=== PATIENT | female | born 1955 | race Caucasian/White ===

== ENCOUNTER → 2016-12-20 | Outpatient (REF) | payer OTHER | LOC: M LAB REF 17:13 | PROVIDERS: ATTEND Advanced Practice Midwife | DX: Z12.4 Encounter for screening for malignant neoplasm of cervix (principal) ==

== ENCOUNTER 2017-04-24 20:53 | Emergency (ER) | payer BC, OTHER ==
[~2017-04-24] VITALS: Ht 165.1 cm; Wt 84.1 kg
[2017-04-24] MEDS ORDERED: NS 1,000 ML IV ONE (22:00)
[2017-04-24] MEDS ORDERED: ONDANSETRON 4MG/2ML VIAL (J2405) IV ONE (22:00)
[2017-04-24] MEDS ORDERED: KETOROLAC 30 MG/ML VIAL (J1885) IV ONE (22:00)
[2017-04-24 23:08] LABS: BASO % 0.7 % (0.0-1.0); EOS # 0.1 K/mm3 (0.0-0.50); EOS % 1.6 % (0.0-3.0); LARGE UNSTAINED CELL # 0.2 K/mm3 (0.0-0.4); LARGE UNSTAINED CELL % 2.2 % (0.0-4.0); LYMPH # 0.8 K/mm3 (1.5-4.5); LYMPH % 9.1 % (24.0-44.0); MEAN CORPUSCULAR HEMOGLOBIN 30.9 pg (27.0-33.0); MEAN CORPUSCULAR HGB CONC 32.9 g/dl (32.0-36.5); MEAN CORPUSCULAR VOLUME 93.8 fl (80.0-96.0); MONO # 0.4 K/mm3 (0.0-0.8); MONO % 5.3 % (0.0-5.0); NEUTROPHILS # 5.8 K/mm3 (1.8-7.7); NEUTROPHILS % 81.2 % (36.0-66.0); PLATELET COUNT, AUTOMATED 250 k/mm3 (150-450); RED CELL DISTRIBUTION WIDTH 13.7 % (11.5-14.5); WHITE BLOOD COUNT 7.2 K/mm3 (4.0-10.0)
[2017-04-24 23:32] LABS: ALBUMIN 3.5 GM/DL (3.2-5.2); ALKALINE PHOSPHATASE 175 U/L (45-117); ALT/SGPT 25 U/L (12-78); AMYLASE 23 U/L (25-115); ANION GAP 17 MEQ/L (8-16); AST/SGOT 5 U/L (15-37); BILIRUBIN,DIRECT < 0.1 MG/DL (0.0-0.2); BILIRUBIN,TOTAL 0.4 MG/DL (0.2-1.0); BLOOD UREA NITROGEN 10 MG/DL (7-18); CALCIUM LEVEL 9.2 MG/DL (8.5-10.1); CARBON DIOXIDE LEVEL 11 MEQ/L (21-32); CHLORIDE LEVEL 107 MEQ/L (98-107); CREATININE FOR GFR 1.02 MG/DL (0.55-1.02); GLUCOSE, FASTING 318 MG/DL (70-105); POTASSIUM SERUM 3.5 MEQ/L (3.5-5.1); SODIUM LEVEL 135 MEQ/L (136-145); TOTAL PROTEIN 8.5 GM/DL (6.4-8.2)
[2017-04-24] MEDS ORDERED: LEVA1TAB PO (23:57)
[2017-04-25] MEDS ORDERED: LevoFLOXacin 250 MG TABLET PO ONE
[2017-04-25 00:30] VITALS: BP 121/65
--- NOTE | 2017-04-25 19:28 | ECGEPIP ---
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 RBBB NO PRIORS Electronically Signed On 04-25-2017 19:28:14 EDT by Carlito Noel
== END 2017-04-25 00:37 | disposition home or self-care (01) ==
LOC: M ED 20:53
DX: N30.90 Cystitis, unspecified without hematuria (principal); E11.65 Type 2 diabetes mellitus with hyperglycemia; R50.9 Fever, unspecified; R11.0 Nausea; R94.31 Abnormal electrocardiogram [ECG] [EKG]

== ENCOUNTER 2017-04-27 15:55 | Inpatient (IN) | payer BC, OTHER ==
[~2017-04-27] VITALS: Ht 165.1 cm; Wt 78.0 kg
[~2017-04-27 15:55] MED LIST: LEVA1TAB PO
[2017-04-27] MEDS ORDERED: JARD1TAB PO (16:07)
[2017-04-27] MEDS ORDERED: METF500T13 PO (16:07)
[2017-04-27] MEDS ORDERED: NS 1,000 ML IV ONE (16:30)
[2017-04-27] MEDS ORDERED: ONDANSETRON 4MG/2ML VIAL (J2405) IV ONE (16:30)
[2017-04-27 17:06] LABS: VENOUS PARTIAL PRESSURE CO2 21.9 mmHg (38.0-50.0); VENOUS STANDARD HCO3 9.7 MEQ/L; VENOUS TOTAL CO2 7.4 MEQ/L (24.0-28.0)
[2017-04-27 17:17] LABS: BASO % 0.3 % (0.0-1.0); EOS # 0.1 K/mm3 (0.0-0.50); EOS % 1.6 % (0.0-3.0); LARGE UNSTAINED CELL # 0.2 K/mm3 (0.0-0.4); LARGE UNSTAINED CELL % 2.5 % (0.0-4.0); LYMPH # 0.5 K/mm3 (1.5-4.5); LYMPH % 6.2 % (24.0-44.0); MEAN CORPUSCULAR HEMOGLOBIN 31.6 pg (27.0-33.0); MEAN CORPUSCULAR HGB CONC 34.3 g/dl (32.0-36.5); MONO # 0.6 K/mm3 (0.0-0.8); MONO % 8.5 % (0.0-5.0); NEUTROPHILS % 80.9 % (36.0-66.0); PLATELET COUNT, AUTOMATED 216 k/mm3 (150-450); RED CELL DISTRIBUTION WIDTH 13.7 % (11.5-14.5); WHITE BLOOD COUNT 7.5 K/mm3 (4.0-10.0)
[2017-04-27 17:35] LABS: ALBUMIN 3.4 GM/DL (3.2-5.2); ALBUMIN/GLOBULIN RATIO 0.77 (1.00-1.93); ALKALINE PHOSPHATASE 170 U/L (45-117); ALT/SGPT 22 U/L (12-78); ANION GAP 21 MEQ/L (8-16); AST/SGOT 5 U/L (15-37); BILIRUBIN,DIRECT < 0.1 MG/DL (0.0-0.2); BILIRUBIN,TOTAL 0.4 MG/DL (0.2-1.0); CARBON DIOXIDE LEVEL 8 MEQ/L (21-32); CHLORIDE LEVEL 112 MEQ/L (98-107); CREATININE FOR GFR 1.15 MG/DL (0.55-1.02); GLOMERULAR FILTRATION RATE 51.4 (>51); POTASSIUM SERUM 4.1 MEQ/L (3.5-5.1); SODIUM LEVEL 141 MEQ/L (136-145); TOTAL PROTEIN 7.8 GM/DL (6.4-8.2)
[2017-04-27 17:45] LABS: BLOOD UREA NITROGEN 23 MG/DL (7-18); CALCIUM LEVEL 10.9 MG/DL (8.5-10.1)
[2017-04-27] MEDS ORDERED: POTASSIUM CHLORIDE 10 MEQ SR TABLET PO ONE (17:45)
[2017-04-27 17:46] LABS: GLUCOSE, FASTING 419 MG/DL (70-105)
[2017-04-27] MEDS: INSULIN HUMAN REGULAR 100 UNITS in NS 99 ML IV SCH (17:57)
[2017-04-27] MEDS: NS 1,000 ML IV SCH (17:57)
[2017-04-27] MEDS ORDERED: INSULIN IV RATE CHANGE DOCUMENTATION ML/HR XX SCH (18:00)
[2017-04-27] MEDS ORDERED: INSULIN HUMAN REGULAR 100 UNITS in NS 99 ML IV SCH (18:00)
--- NOTE | 2017-04-27 18:52 | REP ---
PA and lateral chest: There are no comparisons. The lung tinsley are clear. The cardiac size is normal The margo, mediastinum, and bony thorax are unremarkable. Impression: Negative PA and lateral chest. Signed by Varun Maddox MD 04/27/2017 06:44 P
--- NOTE | 2017-04-27 19:02 | HPEPDOC ---
Medical History and Physical Date of Admission Apr 27, 2017 at 17:57 History and Physical PRIMARY CARE PROVIDER: Dr. Sindy Maldonado ATTENDING: Jose Patino DO CODE STATUS: Full code. CHIEF COMPLAINT: Confusion HISTORY OF PRESENT ILLNESS: 61-year-old female presented to the emergency room brought in by her with increased confusion today, increased frequency, vague abdominal discomfort, nausea with no vomiting, no diarrhea, decreased appetite. Had been in the emergency department a few days ago. According to her was told that her urine had ketones. She had an elevated blood sugar, elevated hemoglobin A1c and was started on metformin and Jardiance. Over the last 24 hours. She is increasingly become what she felt like was dehydrated, increased thirst with increased urination, increased weakness and some mild confusion. He did have updated briefly discuss the case with her primary care provider inform me that this is a new diagnosis for this patient. PAST MEDICAL HISTORY: New diagnosis of diabetes. PAST SURGICAL HISTORY: 2 in the past SOCIAL HISTORY: Happily . Denies tobacco use. Denies alcohol use. No recreational drug use. They have 5 dogs several cats at home. No recent travel, but states that she is had a sick contact at work with a colleague that is had a stomach virus. FAMILY HISTORY: Noncontributory ALLERGIES: No known drug allergies REVIEW OF SYSTEMS: CONSTITUTIONAL: Nausea with no vomiting. No fever, chills, weight loss. HEENT: Some mild confusion related by her which seems to have improved. No headache, lightheadedness, blurred or loss of vision. No difficulty with speech or swallow. CARDIOVASCULAR: No chest pain, palpitations, paroxysmal nocturnal dyspnea or lower extremity edema RESPIRATORY: No cough, productive sputum, wheeze or hemoptysis GENITOURINARY: Frequency with polyuria MUSCULOSKELETAL: No bone, muscle or joint pain. GASTROINTESTINAL: Nausea with no vomiting or diarrhea. However she's had decreased appetite. Bowel movements are regular without hematochezia or melena. No bladder or bowel incontinence. SKIN: No complaint of lesions, abrasions or rashes NEUROLOGICAL: No blurred vision, headaches, parasthesias or paralysis PSYCHIATRIC: No depression, anxiety, audiovisual hallucinations. No suicidal ideations. ENDOCRINE: New diagnosis of diabetes but no history of thyroid disorder. HEMATOLOGIC/LYMPHATIC: No lumpbs, bumps or swelling of neck, axilla or groin. No night sweats or weight loss. HOME MEDICATIONS: Please see below. PHYSICAL EXAMINATION: VITAL SIGNS: Stable. See below GENERAL APPEARANCE: No acute distress, alert, oriented 3, pleasant to talk to. HEENT: Maximum cephalic. Eyes PERRLA. Throat clear. . CARDIOVASCULAR: Regular rate and rhythm. LUNGS: Clear to all station bilaterally. ABDOMEN: Soft, anteroseptal positive bowel sounds, masses or rebound. MUSCULOSKELETAL: Good range of motion limitations. EXTREMITIES: No edema, no calf tenderness. NEUROLOGICAL: Cranial nerves II through XII grossly intact. PSYCHIATRIC: Normal affect. No signs of depression. Denies suicidal or audiovisual hallucinations. LABORATORY DATA: See below. IMAGING: Portable chest x-ray is pending. Twelve-lead EKG: Normal sinus rhythm, no acute ST, T-wave abnormalities MICROBIOLOGY: Please see below. Impression: 61-year-old female recently diagnosed with diabetes. Start on Januvia and metformin presents to the emergency department with some mild confusion. High anion gap metabolic acidosis. I clearly related to diabetic ketoacidosis. Problem list: 1. Metabolic encephalopathy, resolved. 2. High anion gap anabolic acidosis/diabetic ketoacidosis. 3. Mild acute kidney injury . PLAN: Patient will be noted the ICU with insulin drip, IV fluids. We will follow the DKA protocol. We'll adjust insulin drip based on fingersticks and BMP. She should maintain the insulin drip until her anion gap has been closed on repeated labs and can be started on Levemir with sliding scale insulin coverage at that time. We will hold her metformin, Jardiance , however her lactic acid is negative. DVT prophylaxis with Lovenox. Disposition: She'll likely be here greater than 2 midnights. Prognosis is guarded currently by do anticipate that she'll do well once we get her anion gap to close her blood sugars under better control. In the morning. Her care will be taken over by Dr. Avila. Vital Signs Vital Signs Date Time Temp Pulse Resp B/P (MAP) Pulse Ox O2 Delivery O2 Flow Rate FiO2 04/27/17 17:08 04/27/17 15:56 99.0 106 16 99 Room Air Laboratory Data Labs 24H Laboratory Tests 2 04/27/17 16:52: White Blood Count 7.5, Red Blood Count 4.97, Hemoglobin 15.7, Hematocrit 45.7, Mean Corpuscular Volume 92.0, Mean Corpuscular Hemoglobin 31.6, Mean Corpuscular Hemoglobin Concent 34.3, Red Cell Distribution Width 13.7, Platelet Count 216, Neutrophils (%) (Auto) 80.9H, Lymphocytes (%) (Auto) 6.2L, Monocytes (%) (Auto) 8.5H, Eosinophils (%) (Auto) 1.6, Basophils (%) (Auto) 0.3, Neutrophils # (Auto) 6.0, Lymphocytes # (Auto) 0.5L, Monocytes # (Auto) 0.6, Eosinophils # (Auto) 0.1, Basophils # (Auto) 0.0, Large Unclassified Cells % 2.5 , Large Unclassified Cells # 0.2, Blood Gas Bicarbonate Standard 9.7, Venous Blood pH 7.105L, Venous Blood Partial Pressure CO2 21.9L, Venous Blood Partial Pressure O2 56.0H, Venous Blood Total Carbon Dioxide 7.4L, Venous Blood HCO3 6.7L, Venous Blood Oxygen Saturation 87.0H, Venous Blood Base Excess -21.0L, Anion Gap 21H, Glomerular Filtration Rate 51.4, Lactic Acid Level 1.3, Calcium Level 10.9#H, Aspartate Amino Transf (AST/SGOT) 5L, Alanine Aminotransferase ( ALT/SGPT) 22, Alkaline Phosphatase 170H, Total Bilirubin 0.4, Direct Bilirubin < 0.1, Total Protein 7.8, Albumin 3.4, Albumin/Globulin Ratio 0.77L, Lipase 175 04/27/17 18:27: Bedside Glucose (Misc Panel) 338H 04/27/17 18:28: CBC/BMP Laboratory Tests 04/27/17 16:52 Red Blood Count 4.97, Mean Corpuscular Volume 92.0, Mean Corpuscular Hemoglobin 31.6, Mean Corpuscular Hemoglobin Concent 34.3, Red Cell Distribution Width 13.7 , Neutrophils (%) (Auto) 80.9 H, Lymphocytes (%) (Auto) 6.2 L, Monocytes (%) ( Auto) 8.5 H, Eosinophils (%) (Auto) 1.6, Basophils (%) (Auto) 0.3, Neutrophils # (Auto) 6.0, Lymphocytes # (Auto) 0.5 L, Monocytes # (Auto) 0.6, Eosinophils # (Auto) 0.1, Basophils # (Auto) 0.0 Home Medications Scheduled Empagliflozin (Jardiance) 10 Mg Tab, 10 MG PO DAILY Metformin Hydrochloride (Metformin HCl) 500 Mg Tab, 500 MG PO BID Allergies Coded Allergies: No Known Allergies (Unverified , 04/24/17) JOSE PATINO DO Apr 27, 2017 19:02
[2017-04-27 19:14] LABS: ANION GAP 22 MEQ/L (8-16); BLOOD UREA NITROGEN 22 MG/DL (7-18); CALCIUM LEVEL 10.1 MG/DL (8.5-10.1); CARBON DIOXIDE LEVEL 9 MEQ/L (21-32); CHLORIDE LEVEL 109 MEQ/L (98-107); CREATININE FOR GFR 0.99 MG/DL (0.55-1.02); GLOMERULAR FILTRATION RATE > 60.0 (>51); GLUCOSE, FASTING 366 MG/DL (70-105); MAGNESIUM LEVEL 2.6 MG/DL (1.8-2.4); PHOSPHORUS LEVEL 2.7 MG/DL (2.5-4.9); POTASSIUM SERUM 3.9 MEQ/L (3.5-5.1); SODIUM LEVEL 140 MEQ/L (136-145)
[2017-04-27 19:51] VITALS: BP 123/65
[2017-04-27 20:00] VITALS: BP 122/67
[2017-04-27 20:46] LABS: CALCIUM LEVEL 10.1 MG/DL (8.5-10.1); CREATININE FOR GFR 1.01 MG/DL (0.55-1.02); GLOMERULAR FILTRATION RATE 59.7 (>51); POTASSIUM SERUM 4.1 MEQ/L (3.5-5.1)
[2017-04-27 21:00] VITALS: BP 103/60
[2017-04-27 22:00] VITALS: BP 124/67
[2017-04-27 22:23] LABS: ANION GAP 17 MEQ/L (8-16); BLOOD UREA NITROGEN 22 MG/DL (7-18); CALCIUM LEVEL 10.1 MG/DL (8.5-10.1); CARBON DIOXIDE LEVEL 9 MEQ/L (21-32); CHLORIDE LEVEL 116 MEQ/L (98-107); CREATININE FOR GFR 0.99 MG/DL (0.55-1.02); GLOMERULAR FILTRATION RATE > 60.0 (>51); GLUCOSE, FASTING 269 MG/DL (70-105); POTASSIUM SERUM 3.6 MEQ/L (3.5-5.1); SODIUM LEVEL 142 MEQ/L (136-145)
[2017-04-27 23:00] VITALS: BP 119/71
[2017-04-28] VITALS (13 sets, daily range): BP systolic 96–142; BP diastolic 54–70
[2017-04-28 00:31] LABS: ANION GAP 17 MEQ/L (8-16); BLOOD UREA NITROGEN 23 MG/DL (7-18); CALCIUM LEVEL 10.1 MG/DL (8.5-10.1); CARBON DIOXIDE LEVEL 11 MEQ/L (21-32); CHLORIDE LEVEL 114 MEQ/L (98-107); CREATININE FOR GFR 0.95 MG/DL (0.55-1.02); GLOMERULAR FILTRATION RATE > 60.0 (>51); GLUCOSE, FASTING 242 MG/DL (70-105); POTASSIUM SERUM 3.5 MEQ/L (3.5-5.1); SODIUM LEVEL 142 MEQ/L (136-145)
[2017-04-28] MEDS: NS 1,000 ML IV SCH (01:33)
[2017-04-28] MEDS: INSULIN IV RATE CHANGE DOCUMENTATION ML/HR XX SCH ×3 (01:57→14:15)
[2017-04-28] MEDS ORDERED: D5W 1,000 ML IV SCH (02:02)
[2017-04-28 02:31] LABS: ANION GAP 14 MEQ/L (8-16); BLOOD UREA NITROGEN 23 MG/DL (7-18); CALCIUM LEVEL 10.2 MG/DL (8.5-10.1); CARBON DIOXIDE LEVEL 13 MEQ/L (21-32); CHLORIDE LEVEL 117 MEQ/L (98-107); CREATININE FOR GFR 0.92 MG/DL (0.55-1.02); GLOMERULAR FILTRATION RATE > 60.0 (>51); GLUCOSE, FASTING 208 MG/DL (70-105); POTASSIUM SERUM 3.4 MEQ/L (3.5-5.1); SODIUM LEVEL 144 MEQ/L (136-145)
[2017-04-28] MEDS ORDERED: POTASSIUM CHLORIDE INJ 40 MEQ in D5W 1,000 ML IV SCH (03:00)
[2017-04-28] MEDS: KCL 40MEQ IN D5/0.45NS 1000ML 1,000 ML IV SCH ×4 (03:08→20:51)
[2017-04-28 04:19] LABS: ANION GAP 17 MEQ/L (8-16); BLOOD UREA NITROGEN 24 MG/DL (7-18); CARBON DIOXIDE LEVEL 10 MEQ/L (21-32); CHLORIDE LEVEL 120 MEQ/L (98-107); CREATININE FOR GFR 0.87 MG/DL (0.55-1.02); GLOMERULAR FILTRATION RATE > 60.0 (>51); GLUCOSE, FASTING 215 MG/DL (70-105); POTASSIUM SERUM 3.4 MEQ/L (3.5-5.1); SODIUM LEVEL 147 MEQ/L (136-145)
[2017-04-28 06:04] LABS: MEAN CORPUSCULAR HEMOGLOBIN 31.2 pg (27.0-33.0); MEAN CORPUSCULAR HGB CONC 34.1 g/dl (32.0-36.5); MEAN CORPUSCULAR VOLUME 91.6 fl (80.0-96.0); RED CELL DISTRIBUTION WIDTH 13.8 % (11.5-14.5); WHITE BLOOD COUNT 6.6 K/mm3 (4.0-10.0)
[2017-04-28 06:17] LABS: ANION GAP 17 MEQ/L (8-16); BLOOD UREA NITROGEN 21 MG/DL (7-18); CALCIUM LEVEL 10.3 MG/DL (8.5-10.1); CARBON DIOXIDE LEVEL 11 MEQ/L (21-32); CHLORIDE LEVEL 121 MEQ/L (98-107); CREATININE FOR GFR 0.97 MG/DL (0.55-1.02); GLOMERULAR FILTRATION RATE > 60.0 (>51); GLUCOSE, FASTING 241 MG/DL (70-105); POTASSIUM SERUM 3.7 MEQ/L (3.5-5.1); SODIUM LEVEL 149 MEQ/L (136-145)
--- NOTE | 2017-04-28 07:41 | ECGEPIP ---
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
[2017-04-28] MEDS: ENOXAPARIN 30 MG/0.3 ML SYR (J1650) SC SCH (09:11)
[2017-04-28 11:35] LABS: ANION GAP 17 MEQ/L (8-16); BLOOD UREA NITROGEN 20 MG/DL (7-18); CARBON DIOXIDE LEVEL 14 MEQ/L (21-32); CHLORIDE LEVEL 117 MEQ/L (98-107); CREATININE FOR GFR 0.97 MG/DL (0.55-1.02); GLOMERULAR FILTRATION RATE > 60.0 (>51); GLUCOSE, FASTING 263 MG/DL (70-105); MAGNESIUM LEVEL 2.8 MG/DL (1.8-2.4); POTASSIUM SERUM 3.6 MEQ/L (3.5-5.1); SODIUM LEVEL 148 MEQ/L (136-145)
[2017-04-28] MEDS ORDERED: GASTROGRAFIN SOLUTION 30ML PO ONE (13:10)
[2017-04-28] MEDS ORDERED: GASTROGRAFIN SOLUTION 30ML (Q9963) PO ONE (13:40)
[2017-04-28] MEDS ORDERED: ISOVUE-370 76% 100ML VIAL (Q9967) As Ordered ONE (13:48)
[2017-04-28 13:52] LABS: ANION GAP 18 MEQ/L (8-16); BLOOD UREA NITROGEN 18 MG/DL (7-18); CARBON DIOXIDE LEVEL 14 MEQ/L (21-32); CHLORIDE LEVEL 118 MEQ/L (98-107); CREATININE FOR GFR 0.96 MG/DL (0.55-1.02); GLOMERULAR FILTRATION RATE > 60.0 (>51); GLUCOSE, FASTING 247 MG/DL (70-105); MAGNESIUM LEVEL 2.9 MG/DL (1.8-2.4); POTASSIUM SERUM 3.5 MEQ/L (3.5-5.1); SODIUM LEVEL 150 MEQ/L (136-145); T UPTAKE 38 % (30-39); THYROXINE (T4) 5.4 UG/DL (4.5-12.0)
[2017-04-28] MEDS ORDERED: POTASSIUM CHLORIDE 10 MEQ SR TABLET PO ONE (14:30)
--- NOTE | 2017-04-28 17:11 | REP ---
Clinical: Abdominal distension with nausea and pain. Technique: Axial contrast enhanced images from the lung bases to the pubic symphysis using oral and 100 ml Isovue 370 intravenous contrast material with coronal and sagittal re-formations. Findings: There is a 2.2 x 2.1 x 2.1 cm low density mass in the head of the pancreas with associated distal ductal dilatation few adjacent lymph nodes measure up to approximately 7 mm short axis diameter. There is no evidence for associated biliary ductal dilatation. The splenic and portal veins as well as a celiac access demonstrate normal enhancement and contour without evidence for thrombus or infiltration. Subtle haziness to the distal portion of the superior mesenteric vein adjacent to the mass is nonspecific. Liver, spleen, gallbladder/biliary system , bilateral adrenal glands and kidneys are normal. The enteric system is without obstruction or acute inflammatory process. Normal terminal ileum and appendix identified in the right lower quadrant. Pelvis demonstrates normal bladder and age-appropriate uterus/adnexa. No ascites. No free air. Abdominal aorta and vasculature appears normal. Musculoskeletal structures demonstrate nonspecific scattered sclerotic changes primarily involving the pelvis. Lung bases are clear. Visualized heart and pericardium are normal. Impression: 1. 2.2 cm low density mass in the head of the pancreas causing mild ductal dilatation and demonstrating few small nonspecific adjacent lymph nodes is most compatible with pancreatic neoplasm until proven otherwise. 2. Subtle nonspecific sclerotic foci within the pelvis warrant further investigation. Signed by Mik Villa MD 04/28/2017 03:35 P
[2017-04-28 17:54] LABS: ANION GAP 12 MEQ/L (8-16); BLOOD UREA NITROGEN 16 MG/DL (7-18); CALCIUM LEVEL 9.3 MG/DL (8.5-10.1); CARBON DIOXIDE LEVEL 18 MEQ/L (21-32); CHLORIDE LEVEL 115 MEQ/L (98-107); CREATININE FOR GFR 0.89 MG/DL (0.55-1.02); GLOMERULAR FILTRATION RATE > 60.0 (>51); GLUCOSE, FASTING 256 MG/DL (70-105); MAGNESIUM LEVEL 2.6 MG/DL (1.8-2.4); POTASSIUM SERUM 3.6 MEQ/L (3.5-5.1); SODIUM LEVEL 145 MEQ/L (136-145)
[2017-04-28] MEDS: INSULIN HUMAN REGULAR 100 UNITS in NS 99 ML IV SCH (18:20)
--- NOTE | 2017-04-28 20:42 | IPN ---
DATE: 04/28/2017 Patient admitted over yesterday afternoon. No acute events overnight. No further vomiting. Continues to feel tired with poor oral intake. Denies any chest pain, pressure, discomfort, fevers, or chills. VITAL SIGNS: Temperature 99.6, pulse 78, respirations 18, blood pressure 142/70, pulse oximetry 98% on room air. LABORATORY DATA: WBC 6.6, hemoglobin and hematocrit 13.5/39.6, platelets 233. Chemistry: Sodium 150, potassium 3.5, chloride 118, bicarbonate 14, BUN 18, creatinine 0.96. PHYSICAL EXAMINATION: GENERAL: Patient alert, comfortable in no acute distress. HEENT: Normocephalic, atraumatic. PULMONARY: Bilaterally clear to auscultation. CARDIAC: Regular rate and rhythm. Normal S1, S2. ABDOMEN: Soft, nontender. Positive bowel sounds. EXTREMITIES: No clubbing, cyanosis, or edema. ASSESSMENT AND PLAN: This is a 61-year-old female patient with no significant underlying medical history other than newly diagnosed diabetes, admitted to [facility] for diabetic ketoacidosis (DKA) with abdominal bloating and nausea. 1. DKA. Patient with newly diagnosed diabetes. Patient was on insulin drip overnight. Continued to have an anion gap with ketosis. Continue intravenous (IV) fluids as ordered, insulin drip. Followup anion gap, electrolytes. Supplement potassium. Follow magnesium. Antiemetics. Nothing by mouth for now. IV fluids for hydration. Given patient's condition is pretty resistant, additional investigation with CT scan was ordered. Will add glucagon level. 2. Pancreatic tumor with surrounding lymphadenopathy. Case discussed with Dr. Chance Lagunas, refrigeration installer. [facility] does not offer EUS, and finding on a CT scan is suspicions for pancreatic cancer. Glucagon was sent. CA19.9 was sent. Case also discussed with [facility] ([facility]) [facility] biliary surgeon, Dr. Jones at phone number . Dr. Jones agreed that the patient will need tertiary care, possible [facility], and has agreed to accept the patient. Will attempt to bridge the patient off insulin drip overnight so the patient can be transferred to [facility]/surgical floor tomorrow. Family was updated of patient's condition. 3. Acute kidney injury (MARY), elevation in creatinine, resolved. Continue IV fluids. 4. Deep vein thrombosis (DVT) prophylaxis. Lovenox subcutaneous. DISPOSITION PLANNING: Will try to bridge the patient overnight off the insulin drip prior to attempting to transfer the patient to [facility].
[2017-04-28 22:14] LABS: ANION GAP 14 MEQ/L (8-16); BLOOD UREA NITROGEN 14 MG/DL (7-18); CALCIUM LEVEL 9.3 MG/DL (8.5-10.1); CARBON DIOXIDE LEVEL 16 MEQ/L (21-32); CHLORIDE LEVEL 115 MEQ/L (98-107); CREATININE FOR GFR 0.88 MG/DL (0.55-1.02); GLOMERULAR FILTRATION RATE > 60.0 (>51); GLUCOSE, FASTING 283 MG/DL (70-105); MAGNESIUM LEVEL 2.5 MG/DL (1.8-2.4); POTASSIUM SERUM 3.8 MEQ/L (3.5-5.1); SODIUM LEVEL 145 MEQ/L (136-145)
[2017-04-29] VITALS (7 sets, daily range): BP systolic 111–132; BP diastolic 57–74
[2017-04-29 01:22] LABS: ANION GAP 11 MEQ/L (8-16); BLOOD UREA NITROGEN 12 MG/DL (7-18); CARBON DIOXIDE LEVEL 18 MEQ/L (21-32); CHLORIDE LEVEL 116 MEQ/L (98-107); CREATININE FOR GFR 0.81 MG/DL (0.55-1.02); GLOMERULAR FILTRATION RATE > 60.0 (>51); GLUCOSE, FASTING 287 MG/DL (70-105); MAGNESIUM LEVEL 2.4 MG/DL (1.8-2.4); POTASSIUM SERUM 3.9 MEQ/L (3.5-5.1); SODIUM LEVEL 145 MEQ/L (136-145)
[2017-04-29] MEDS: KCL 40MEQ IN D5/0.45NS 1000ML 1,000 ML IV SCH ×2 (01:35→06:30)
[2017-04-29 04:53] LABS: MEAN CORPUSCULAR HEMOGLOBIN 30.7 pg (27.0-33.0); MEAN CORPUSCULAR HGB CONC 33.8 g/dl (32.0-36.5); MEAN CORPUSCULAR VOLUME 90.8 fl (80.0-96.0); RED CELL DISTRIBUTION WIDTH 13.9 % (11.5-14.5); WHITE BLOOD COUNT 4.5 K/mm3 (4.0-10.0)
[2017-04-29 05:17] LABS: ANION GAP 12 MEQ/L (8-16); BLOOD UREA NITROGEN 10 MG/DL (7-18); CALCIUM LEVEL 9.1 MG/DL (8.5-10.1); CARBON DIOXIDE LEVEL 19 MEQ/L (21-32); CHLORIDE LEVEL 117 MEQ/L (98-107); CREATININE FOR GFR 0.78 MG/DL (0.55-1.02); GLOMERULAR FILTRATION RATE > 60.0 (>51); GLUCOSE, FASTING 285 MG/DL (70-105); MAGNESIUM LEVEL 2.5 MG/DL (1.8-2.4); POTASSIUM SERUM 3.9 MEQ/L (3.5-5.1); SODIUM LEVEL 148 MEQ/L (136-145)
[2017-04-29] MEDS ORDERED: LEVEMIR (INSULIN DETEMIR) 1 UNITS/0.01ML SC STA (08:39)
[2017-04-29] MEDS ORDERED: GLUCAGON FOR INJ 1 MG VIAL (J1610) SC PRN (08:45)
[2017-04-29] MEDS ORDERED: GLUCOSE 4 GM CHEW TABLET PO PRN (08:45)
[2017-04-29] MEDS ORDERED: DEXTROSE 50% 50 ML SYRINGE IV PRN (08:45)
[2017-04-29] MEDS ORDERED: SODIUM CHLORIDE 0.45% 1000 ML IV ONE (09:00)
[2017-04-29] MEDS: KCL 20MEQ IN 0.45NS 1000ML 1,000 ML IV SCH ×3 (09:13→21:15)
[2017-04-29] MEDS: ENOXAPARIN 30 MG/0.3 ML SYR (J1650) SC SCH (09:13)
[2017-04-29 09:45] LABS: ANION GAP 10 MEQ/L (8-16); BLOOD UREA NITROGEN 10 MG/DL (7-18); CALCIUM LEVEL 9.5 MG/DL (8.5-10.1); CARBON DIOXIDE LEVEL 21 MEQ/L (21-32); CHLORIDE LEVEL 115 MEQ/L (98-107); CREATININE FOR GFR 0.76 MG/DL (0.55-1.02); GLOMERULAR FILTRATION RATE > 60.0 (>51); GLUCOSE, FASTING 267 MG/DL (70-105); MAGNESIUM LEVEL 2.5 MG/DL (1.8-2.4); POTASSIUM SERUM 4.1 MEQ/L (3.5-5.1); SODIUM LEVEL 146 MEQ/L (136-145)
[2017-04-29] MEDS ORDERED: HumaLOG INSULIN (NovoLOG) PER UNIT SC SCH (12:00)
[2017-04-29 13:34] LABS: ANION GAP 12 MEQ/L (8-16); BLOOD UREA NITROGEN 10 MG/DL (7-18); CALCIUM LEVEL 9.1 MG/DL (8.5-10.1); CARBON DIOXIDE LEVEL 19 MEQ/L (21-32); CHLORIDE LEVEL 110 MEQ/L (98-107); CREATININE FOR GFR 0.58 MG/DL (0.55-1.02); GLOMERULAR FILTRATION RATE > 60.0 (>51); GLUCOSE, FASTING 311 MG/DL (70-105); MAGNESIUM LEVEL 2.2 MG/DL (1.8-2.4); POTASSIUM SERUM 3.8 MEQ/L (3.5-5.1); SODIUM LEVEL 141 MEQ/L (136-145)
[2017-04-29] MEDS ORDERED: NS 0.45% 1,000 ML IV ONE (14:00)
[2017-04-29] MEDS ORDERED: INSUHUMDS SC (15:30)
[2017-04-29] MEDS ORDERED: INSUDET SC (15:30)
[2017-04-29] MEDS: HumaLOG INSULIN (NovoLOG) PER UNIT SC SCH ×2 (16:59→21:14)
[2017-04-29 17:08] LABS: ANION GAP 11 MEQ/L (8-16); BLOOD UREA NITROGEN 12 MG/DL (7-18); CARBON DIOXIDE LEVEL 20 MEQ/L (21-32); CHLORIDE LEVEL 105 MEQ/L (98-107); CREATININE FOR GFR 0.55 MG/DL (0.55-1.02); GLOMERULAR FILTRATION RATE > 60.0 (>51); GLUCOSE, FASTING 287 MG/DL (70-105); MAGNESIUM LEVEL 2.1 MG/DL (1.8-2.4); POTASSIUM SERUM 3.4 MEQ/L (3.5-5.1); SODIUM LEVEL 136 MEQ/L (136-145)
[2017-04-29] MEDS ORDERED: POTASSIUM CHLORIDE 10 MEQ SR TABLET PO ONE (18:30)
--- NOTE | 2017-04-29 21:51 | DSES ---
DATE OF ADMISSION: 04/27/2017 DATE OF DISCHARGE: Pending bed availability from [facility] Discharge pending bed availability at [facility]. FINAL DIAGNOSES: 1. Diabetic ketoacidosis, newly diagnosed. 2. Diabetes mellitus, type 2. 3. Pancreatic tumor with surrounding lymphadenopathy, likely pancreatic cancer. 4. Acute kidney injury. PRIMARY CARE PROVIDER: Dr. Duggan ACCEPTING PHYSICIAN: Dr. Jones HISTORY OF PRESENT ILLNESS: This is a 61-year-old female patient with underlying medical history of newly diagnosed diabetes, type 2, brought to the emergency room with increased confusion, increase in urinary frequency, vague abdominal discomfort, nausea. No vomiting. No diarrhea. Decrease in appetite. Seen in the emergency department a few days ago. Was found to have ketones in the urine, elevated blood sugar, and elevated A1c. Started on metformin. Noticed to be a bit jaundiced before. Was sent home with increasing dehydration, increasing thirst, increasing weakness, and mild confusion. Subsequently sent to the hospital. Found to be in diabetic ketoacidosis (DKA). HOSPITAL COURSE: Patient admitted to the hospital. Found to be in DKA. A1c was sent. Patient was started on intravenous (IV) fluids, insulin drip. Electrolytes were followed and supplemented. Patient's anion gap and ketones were monitored due to persistent abdominal discomfort. CT scan of the abdomen was done, which showed 2.2 cm low-density mass in the head of the pancreas, causing mild ductal dilatation and also a few specific adjacent lymph nodes compatible with pancreatic neoplasm, CA19.9 was sent. Case was discussed with Dr. Chance Lagunas given that [facility] does not offer endoscopic ultrasound (EUS) with biopsy. Definitive diagnosis cannot be made at [facility]. Lipase was negative. Case was discussed with Dr. Jones who has agreed to accept the patient at [facility]. Patient was bridged off insulin drip earlier this morning. Contacted transfer center to transfer the patient and was told that [facility] does not have any available bed yet. Subsequently, patient was placed on weight list. IV fluids were continued. Diet as ordered. Basal bolus insulin. Adjust as per fingerstick. Followup fingersticks every 2 hours until patient's chemistry and fingerstick stabilizes. DISCHARGE INSTRUCTIONS: Patient is instructed to followup with Dr. Jones for further care of the pancreatic mass. Followup glucagon level has been sent. Followup with primary care provider for glucose control after discharge from [facility]. VITAL SIGNS: Temperature 97.2, pulse 82, respirations 16, blood pressure 131/70, pulse oximetry 98% on room air. GENERAL: Patient alert and oriented times three in no acute distress. HEENT: Normocephalic, atraumatic. PULMONARY: Bilaterally clear to auscultation. CARDIAC: Regular rate and rhythm. Normal S1, S2. ABDOMEN: Soft and nontender. Positive bowel sounds. EXTREMITIES: No clubbing, cyanosis, or edema. LABORATORY DATA: WBC 4.5, hemoglobin and hematocrit 12.5/37.1, platelets 197. Chemistry: Sodium 145, potassium 3.6, chloride 115, bicarbonate 18, anion gap 12 , BUN 16, creatinine 0.89. A1c 14.1. ASSESSMENT AND PLAN: This is a 61-year-old female patient with no significant underlying medical history. Has not seen primary care provider in years. With newly diagnosed diabetes, admitted to [facility] for diabetic ketoacidosis (DKA) with abdominal bloating and nausea. 1. DKA with newly diagnosed diabetes. Patient was bridged off insulin drip to basal bolus insulin. Will adjust Levemir and mealtime insulin as per fingerstick. Followup fingerstick every 2 hours for the next 12 hours. Followup basic metabolic panel and magnesium. Supplement electrolytes. Followup ketones. IV fluids will be continued. Will follow glucagon levels. 2. Pancreatic tumor with surrounding lymphadenopathy. Case discussed with Dr. Lagunas, wire transfer clerk, [facility], given [facility] does not offer endoscopic ultrasound (EUS) with biopsy. CT scan showed suspicious for pancreatic cancer with mild ductal dilatation. Glucagon level was sent. CA19.9 was negative. Case discussed with [facility], Dr. Jones, who will be willing to accept the patient. Called transfer center. Patient currently on weight list for [facility]. 3. Acute kidney injury (MARY), resolved. 4. Deep vein thrombosis (DVT) prophylaxis. Lovenox subcutaneous. DISPOSITION PLANNING: Pending transfer to [facility]. Further care as per accepting physician. [facility]
[2017-04-29 21:56] LABS: ANION GAP 12 MEQ/L (8-16); BLOOD UREA NITROGEN 13 MG/DL (7-18); CALCIUM LEVEL 8.7 MG/DL (8.5-10.1); CARBON DIOXIDE LEVEL 21 MEQ/L (21-32); CHLORIDE LEVEL 106 MEQ/L (98-107); CREATININE FOR GFR 0.51 MG/DL (0.55-1.02); GLOMERULAR FILTRATION RATE > 60.0 (>51); GLUCOSE, FASTING 279 MG/DL (70-105); MAGNESIUM LEVEL 2.1 MG/DL (1.8-2.4); SODIUM LEVEL 139 MEQ/L (136-145)
[2017-04-30] VITALS: BP 105/58
[2017-04-30 04:00] VITALS: BP 133/63
[2017-04-30 05:01] LABS: MEAN CORPUSCULAR HEMOGLOBIN 31.2 pg (27.0-33.0); MEAN CORPUSCULAR VOLUME 89.2 fl (80.0-96.0); RED CELL DISTRIBUTION WIDTH 13.5 % (11.5-14.5); WHITE BLOOD COUNT 4.5 K/mm3 (4.0-10.0)
[2017-04-30 05:22] LABS: ALBUMIN 2.5 GM/DL (3.2-5.2); ALBUMIN/GLOBULIN RATIO 0.69 (1.00-1.93); ALKALINE PHOSPHATASE 136 U/L (45-117); ALT/SGPT 22 U/L (12-78); ANION GAP 10 MEQ/L (8-16); AST/SGOT 14 U/L (15-37); BILIRUBIN,TOTAL 0.4 MG/DL (0.2-1.0); BLOOD UREA NITROGEN 7 MG/DL (7-18); CALCIUM LEVEL 9.2 MG/DL (8.5-10.1); CARBON DIOXIDE LEVEL 23 MEQ/L (21-32); CHLORIDE LEVEL 107 MEQ/L (98-107); CREATININE FOR GFR 0.42 MG/DL (0.55-1.02); GLOMERULAR FILTRATION RATE > 60.0 (>51); GLUCOSE, FASTING 186 MG/DL (70-105); POTASSIUM SERUM 3.9 MEQ/L (3.5-5.1); SODIUM LEVEL 140 MEQ/L (136-145); TOTAL PROTEIN 6.1 GM/DL (6.4-8.2)
[2017-04-30] MEDS: KCL 20MEQ IN 0.45NS 1000ML 1,000 ML IV SCH ×2 (05:23→14:41)
[2017-04-30 08:00] VITALS: BP 147/82
[2017-04-30] MEDS: HumaLOG INSULIN (NovoLOG) PER UNIT SC SCH ×4 (08:29→20:22)
[2017-04-30] MEDS: ENOXAPARIN 30 MG/0.3 ML SYR (J1650) SC SCH (08:30)
[2017-04-30] MEDS ORDERED: LEVEMIR (INSULIN DETEMIR) 1 UNITS/0.01ML SC SCH ×2 (09:00)
[2017-04-30 12:00] VITALS: BP 137/75
[2017-04-30 13:50] VITALS: BP 128/69
--- NOTE | 2017-04-30 15:16 | IPN ---
DATE OF SERVICE: 04/30/2017 The patient seen and examined. No acute events overnight. Denies any chest pain, pressure, discomfort. Denies any shortness of breath. Tolerating oral. VITAL SIGNS: Temperature 98.6, pulse 89, respirations 16, blood pressure 128/69, pulse oximetry 96% on room air. LABORATORY: WBC 4.5, hemoglobin and hematocrit 12.2/34.8, platelets 171. Chemistry: Sodium 140, potassium 3.9, chloride 107, bicarbonate 23, BUN 7, creatinine 0.4. PHYSICAL EXAMINATION: GENERAL: The patient alert and oriented times three, in no acute distress. HEENT: Normocephalic, atraumatic. PULMONARY: Bilaterally clear to auscultation. CARDIAC: Regular rate and rhythm. Normal S1, S2. ABDOMEN: Soft, nontender. Positive bowel sounds. EXTREMITIES: No clubbing, cyanosis, or edema. ASSESSMENT AND PLAN: This is a 61-year-old female patient with no significant underlying medical history other than newly-diagnosed diabetes. Has not seen primary care provider in years. Admitted to [facility] with diabetic ketoacidosis (DKA) and abdominal bloating and nausea. 1. Diabetic ketoacidosis (DKA) with newly-diagnosed diabetes. The patient currently off insulin drip. On basal bolus. Levemir and mealtime protocol. Followup fingersticks. Check glucagon levels. A1c is appreciated. Counseling provided. 2. Pancreatic tumor with surrounding lymphadenopathy. Case discussed with Dr. Chance Lagunas, physical therapy aide at [facility]. [facility] does not offer EUS with biopsy. CT scan shows suspicious for pancreatic neoplasm with mild ductal dilatation. Glucagon level was sent. CA19-9 has been negative. Case discussed with [facility], Dr. Jones, who would be willing to accept the patient to continue the treatment and workup. Called transfer center. The patient currently on wait list. Further call to transfer center has been made to update that the patient is currently medical-surgical floor. 3. Acute kidney injury (MARY), currently resolved. 4. Deep vein thrombosis (DVT) prophylaxis. Lovenox subcutaneous. DISPOSITION PLANNING: Pending transfer the patient to [facility].
[2017-04-30 22:00] VITALS: BP 124/72
[2017-05-01 06:00] VITALS: BP 126/68
[2017-05-01] MEDS: KCL 20MEQ IN 0.45NS 1000ML 1,000 ML IV SCH (06:01)
[2017-05-01 06:18] LABS: MEAN CORPUSCULAR HEMOGLOBIN 31.1 pg (27.0-33.0); MEAN CORPUSCULAR HGB CONC 35.4 g/dl (32.0-36.5); MEAN CORPUSCULAR VOLUME 87.9 fl (80.0-96.0); RED CELL DISTRIBUTION WIDTH 13.4 % (11.5-14.5); WHITE BLOOD COUNT 4.1 K/mm3 (4.0-10.0)
[2017-05-01 06:23] LABS: ALBUMIN 2.2 GM/DL (3.2-5.2); ALBUMIN/GLOBULIN RATIO 0.61 (1.00-1.93); ALKALINE PHOSPHATASE 131 U/L (45-117); ALT/SGPT 27 U/L (12-78); ANION GAP 12 MEQ/L (8-16); AST/SGOT 21 U/L (15-37); BILIRUBIN,TOTAL 0.3 MG/DL (0.2-1.0); BLOOD UREA NITROGEN 13 MG/DL (7-18); CALCIUM LEVEL 8.9 MG/DL (8.5-10.1); CARBON DIOXIDE LEVEL 24 MEQ/L (21-32); CHLORIDE LEVEL 104 MEQ/L (98-107); CREATININE FOR GFR 0.47 MG/DL (0.55-1.02); GLOMERULAR FILTRATION RATE > 60.0 (>51); GLUCOSE, FASTING 220 MG/DL (70-105); POTASSIUM SERUM 3.6 MEQ/L (3.5-5.1); SODIUM LEVEL 140 MEQ/L (136-145); TOTAL PROTEIN 5.8 GM/DL (6.4-8.2)
[2017-05-01] MEDS ORDERED: POTASSIUM CHLORIDE 10 MEQ SR TABLET PO ONE (07:00)
[2017-05-01] MEDS: ENOXAPARIN 30 MG/0.3 ML SYR (J1650) SC SCH (08:54)
[2017-05-01] MEDS: LEVEMIR (INSULIN DETEMIR) 1 UNITS/0.01ML SC SCH (08:55)
[2017-05-01] MEDS: HumaLOG INSULIN (NovoLOG) PER UNIT SC SCH ×4 (08:55→20:59)
[2017-05-01 14:00] VITALS: BP 126/67
--- NOTE | 2017-05-01 14:18 | DSES ---
DATE OF ADMISSION: 04/27/2017 DATE OF DISCHARGE: Discharge pending bed availability at [facility]. ACCEPTING PHYSICIAN: Dr. Jones PRIMARY CARE PROVIDER: Dr. Sindy Maldonado FINAL DIAGNOSES: Diabetic ketoacidosis. Type 2 diabetes, newly diagnosed. Pancreatic tumor with surrounding lymphadenopathy and mildly dilated pancreatic duct. Acute kidney injury. HISTORY OF PRESENT ILLNESS: This is a 61-year-old female patient with underlying medical history of newly diagnosed diabetic type 2, brought to the emergency room with increased confusion, increased urinary frequency, vague abdominal discomfort, nausea, no vomiting, no diarrhea, decreased appetite, seen in the emergency room several days ago, found to have ketones in the urine, elevated glucose, elevated A1c, started on metformin, noticed to be a bit jaundiced before, was sent to the hospital, was sent home, persisted to have increased dehydration, increased thirst, subsequently presented to the hospital with mild confusion and weakness. Subsequently, found to be in diabetic ketoacidosis (DKA). HOSPITAL COURSE: Patient was admitted to the hospital, found to be in DKA. A1c significantly elevated. Patient was started on intravenous (IV) fluids, insulin drip, and electrolytes were supplemented. Anion gap and ketones were monitored. Due to persistent abdominal discomfort, CT scan of the abdomen was done which showed a 2.2 cm low-density mass in the head of the pancreas causing mild ductal dilatation and also a few specific adjacent lymph nodes compatible with pancreatic neoplasm. A CA19-9 was sent as well as glucagon. Case was discussed with Dr. Chance Lagunas, gastroenterology at [facility]. Given [facility] does not offer EUS with biopsy, definitive diagnosis cannot be made at [facility]. Lipase has been negative. Case was discussed with biliary surgeon, Dr. Jones, at [facility], who has accepted patient at [facility] and who would like the patient to be transferred under his care to [facility]. Patient currently has bridged off of insulin drip, basal bolus insulin, transferred to medical-surgical floor, and patient is currently placed on the wait list for medical-surgical bed at [facility]. Tolerating diet with closed anion gap. Ready for transfer. DISCHARGE INSTRUCTIONS: Patient is instructed to followup with Dr. Jones for further care of pancreatic mass and followup glucagon levels. Patient will need improved glucose control after discharge from the hospital. Followup with primary care provider in 7 days. Will need insulin as outpatient. PHYSICAL EXAM: VITAL SIGNS: Temperature 98.1, pulse 86, respiration 18, blood pressure 126/68, pulse oximetry 96% on room air. GENERAL: Patient alert and oriented times three, in no acute distress. HEENT: Normocephalic, atraumatic. PULMONARY: Bilateral clear to auscultation. CARDIAC: Regular rate, rhythm. Normal S1, S2. ABDOMEN: Soft, nontender. Positive bowel sounds. EXTREMITIES: No clubbing, cyanosis, or edema. LABORATORY: WBC 4.1, hemoglobin and hematocrit (H and H) 11.3/31.8, platelets 157. Chemistry: Sodium 140, potassium 3.6, chloride 104, bicarbonate 24, BUN 13, creatinine 0.47. A1c is 14.4. ASSESSMENT AND PLAN: This is a 61-year-old female patient with no significant underlying medical history with newly diagnosed type 2 diabetes, initially admitted to [facility] with diabetic ketoacidosis, found to have pancreatic tumor. 1. Diabetic ketoacidosis (DKA) newly diagnosed. Patient currently is on basal bolus insulin. Need outpatient followup. A1c appreciated. Followup glucagon level. 2. Pancreatic tumor with surrounding lymphadenopathy. Case discussed with Dr. Chance Lagunas, gastroenterology at [facility]. Given [facility] does not offer EUS with biopsy, CT scan shows suspicious for pancreatic cancer with mild ductal dilatation, case was discussed with Dr. Jones at [facility], who will be willing to accept the patient as a transfer. Patient is currently on the waiting list at [facility]. 3. Acute kidney injury (MARY). Resolved. 4. Deep venous thrombosis (DVT) prophylaxis. Lovenox subcutaneous. DISPOSITION PLANNING: Pending transfer to [facility]. Further care as per provider at [facility]. RAS
[2017-05-01 22:00] VITALS: BP 124/59
[2017-05-02 06:00] VITALS: BP 108/54
[2017-05-02 07:28] LABS: ALBUMIN 2.3 GM/DL (3.2-5.2); ALBUMIN/GLOBULIN RATIO 0.62 (1.00-1.93); ALKALINE PHOSPHATASE 143 U/L (45-117); ALT/SGPT 31 U/L (12-78); ANION GAP 10 MEQ/L (8-16); AST/SGOT 22 U/L (15-37); BILIRUBIN,TOTAL 0.3 MG/DL (0.2-1.0); BLOOD UREA NITROGEN 10 MG/DL (7-18); CALCIUM LEVEL 8.7 MG/DL (8.5-10.1); CARBON DIOXIDE LEVEL 27 MEQ/L (21-32); CHLORIDE LEVEL 104 MEQ/L (98-107); CREATININE FOR GFR 0.44 MG/DL (0.55-1.02); GLOMERULAR FILTRATION RATE > 60.0 (>51); GLUCOSE, FASTING 196 MG/DL (70-105); MAGNESIUM LEVEL 2.2 MG/DL (1.8-2.4); POTASSIUM SERUM 3.8 MEQ/L (3.5-5.1); SODIUM LEVEL 141 MEQ/L (136-145)
[2017-05-02 07:30] LABS: MEAN CORPUSCULAR HEMOGLOBIN 30.3 pg (27.0-33.0); MEAN CORPUSCULAR HGB CONC 33.5 g/dl (32.0-36.5); MEAN CORPUSCULAR VOLUME 90.5 fl (80.0-96.0); RED CELL DISTRIBUTION WIDTH 13.8 % (11.5-14.5); WHITE BLOOD COUNT 3.9 K/mm3 (4.0-10.0)
[2017-05-02] MEDS: HumaLOG INSULIN (NovoLOG) PER UNIT SC SCH ×4 (07:48→21:55)
[2017-05-02] MEDS: ENOXAPARIN 30 MG/0.3 ML SYR (J1650) SC SCH (07:49)
[2017-05-02] MEDS: LEVEMIR (INSULIN DETEMIR) 1 UNITS/0.01ML SC SCH (07:49)
--- NOTE | 2017-05-02 11:01 | IPN ---
DATE: 05/02/2017 SUBJECTIVE: The patient does not offer any complaints today. She is feeling well. Denies any abdominal pain. Denies any nausea, vomiting. Denies any fever or chills. Denies any chest pain or shortness of breath. Has been concerned regarding patient not being transferred still to [facility]. However, I explained that we are still waiting for a bed and it is not an emergency at this point to try and transfer to other hospitals. We can wait for 1 or 2 days as her symptoms are better and her blood tests look good. I also explained if she is transferred to some other hospital, she will need regular followups, which the patient as well as her felt that may be too far to follow so they are, at this point, okay to wait for a bed to become available at [facility]. The patient did request to go outside to the [facility] garden and I have let the nurses know that she could be allowed to go out of the [place] with family. PHYSICAL EXAMINATION: VITAL SIGNS: Temperature 98.5, pulse 95, respiratory rate 18, blood pressure 108/54, pulse oximetry 95% in room air. GENERAL: The patient is alert, awake, oriented times three, sitting up in bed in no acute distress. HEENT: Normocephalic, atraumatic. Moist mucous membranes, anicteric eyes. CHEST: Clear to auscultation. CARDIOVASCULAR: S1, S2 regular. No rub, murmur or gallop. ABDOMEN: Soft, nontender, bowel sounds normal. No guarding or rigidity. No organomegaly. EXTREMITIES: No edema. Pulses normal. LABORATORY DATA: WBC 3.9, hemoglobin 11.5, platelet 116, sodium 141, potassium 3.8, chloride 104, bicarbonate 27, BUN 10, creatinine 0.4, glucose 196, calcium 8.7, total bilirubin 0.3, AST 22, ALT 31, alkaline phosphatase 143, albumin 2.3. Urine culture negative. ASSESSMENT/PLAN: This is a 61-year-old female admitted to the hospital for diabetic ketoacidosis with newly diagnosed diabetes about 1 week prior to admission and incidentally found to have a pancreatic tumor with surrounding lymphadenopathy and CT scan of the abdomen suspicious for pancreatic neoplasm with mild ductal and dilatation. PLAN: Diabetic ketoacidosis: Resolved at this point. Will continue the patient on Levemir insulin and Lispro as per sliding scale. Her A1c of 14.1. However, review of chart shows that she did have an A1c of 7.2 in 2004 but she never followed up with a physician. The patient will need to be on insulin at home at this point. Pancreatic mass with lymphadenopathy most probably pancreatic neoplasm. The patient will need endoscopic ultrasound (EUS) with biopsy, which is not done at our hospital so we have placed the patient transfer to [facility]. The patient has been accepted by Dr. Jones. Currently, the patient is on a wait list. Acute kidney injury: Resolved. Acute metabolic encephalopathy due to diabetic ketoacidosis on presentation, which has resolved at this point as the patient had some confusion on admission. Deep venous thrombosis prophylaxis: The patient is on Lovenox. DISPOSITION: The patient is waiting for transfer to [facility].
[2017-05-02 22:00] VITALS: BP 102/67
[2017-05-03 06:00] VITALS: BP 107/62
[2017-05-03 07:11] LABS: MEAN CORPUSCULAR HEMOGLOBIN 30.9 pg (27.0-33.0); MEAN CORPUSCULAR HGB CONC 34.4 g/dl (32.0-36.5); MEAN CORPUSCULAR VOLUME 89.8 fl (80.0-96.0); RED CELL DISTRIBUTION WIDTH 13.5 % (11.5-14.5)
[2017-05-03 07:36] LABS: ALBUMIN 2.4 GM/DL (3.2-5.2); ALBUMIN/GLOBULIN RATIO 0.65 (1.00-1.93); ALKALINE PHOSPHATASE 157 U/L (45-117); ALT/SGPT 41 U/L (12-78); ANION GAP 8 MEQ/L (8-16); AST/SGOT 31 U/L (15-37); BILIRUBIN,TOTAL 0.2 MG/DL (0.2-1.0); BLOOD UREA NITROGEN 9 MG/DL (7-18); CALCIUM LEVEL 8.6 MG/DL (8.5-10.1); CARBON DIOXIDE LEVEL 30 MEQ/L (21-32); CHLORIDE LEVEL 102 MEQ/L (98-107); CREATININE FOR GFR 0.45 MG/DL (0.55-1.02); GLOMERULAR FILTRATION RATE > 60.0 (>51); GLUCOSE, FASTING 209 MG/DL (70-105); MAGNESIUM LEVEL 2.5 MG/DL (1.8-2.4); POTASSIUM SERUM 3.8 MEQ/L (3.5-5.1); SODIUM LEVEL 140 MEQ/L (136-145); TOTAL PROTEIN 6.1 GM/DL (6.4-8.2)
[2017-05-03] MEDS: HumaLOG INSULIN (NovoLOG) PER UNIT SC SCH ×4 (08:07→21:45)
[2017-05-03] MEDS: LEVEMIR (INSULIN DETEMIR) 1 UNITS/0.01ML SC SCH (08:07)
[2017-05-03] MEDS: ENOXAPARIN 30 MG/0.3 ML SYR (J1650) SC SCH (08:08)
[2017-05-03 14:00] VITALS: BP 110/65
--- NOTE | 2017-05-03 15:39 | IPNPDOC ---
Date Seen The patient was seen on 05/03/17. Progress Note SUBJECTIVE: Patient feels good has no complaints admits to feeling restless that she is still in the hospital OBJECTIVE PHYSICAL EXAMINATION: VITAL SIGNS: Please see below. GENERAL: Pleasant middle-aged female sitting up in bed she does not appear to be in any acute distress she is laughing and talking and examined while eating her lunch HEENT: Pupils equally round reactive to light she has moist pedis membranes CARDIOVASCULAR: 1 S2 regular. RESPIRATORY: Clear to auscultation bilaterally. ABDOMINAL: Bowel sounds present abdomen soft and nontender it is a benign exam EXTREMITIES: no c/c/e LABORATORY DATA: Please see below. MICROBIOLOGY: Please see below. IMAGING: CT Abd/Pelvis: 1. 2.2 cm low density mass in the head of the pancreas causing mild ductal dilatation and demonstrating few small nonspecific adjacent lymph nodes is most compatible with pancreatic neoplasm until proven otherwise. 2. Subtle nonspecific sclerotic foci within the pelvis warrant further investigation. DVT prophylaxis ordered?: Lovenox ASSESSMENT AND PLAN: This is a 80 -year-old female with DKA now resolved, new Dx of DM.and pancreatic mass. PROBLEMS: 1. DM: Now on insulin, DKA resolved. 2. Pancreatic Mass: Awaiting transfer to [facility] for Biopsy via EUS. 3. MARY: Resolved. DISPOSITION: Pending bed availability. [facility] Vital Signs Date Time Temp Pulse Resp B/P (MAP) Pulse Ox O2 Delivery O2 Flow Rate FiO2 05/03/17 09:30 Room Air 05/03/17 06:00 98.0 89 17 107/62 (77) 94 I&O- Last 24 Hours up to 6 AM 05/03/17 06:00 Intake Total 1560 ml Balance 1560 ml Laboratory Data 24H LABS Laboratory Tests 2 05/02/17 16:48: Bedside Glucose (Misc Panel) 342H 05/02/17 18:33: Bedside Glucose (Misc Panel) 238H 05/02/17 21:48: Bedside Glucose (Misc Panel) 297H 05/03/17 06:17: Anion Gap 8, Glomerular Filtration Rate > 60.0, Blood Urea Nitrogen 9, Creatinine 0.45L, Sodium Level 140, Potassium Level 3.8, Chloride Level 102, Carbon Dioxide Level 30, Calcium Level 8.6, Aspartate Amino Transf (AST/SGOT) 31 , Alanine Aminotransferase (ALT/SGPT) 41, Alkaline Phosphatase 157H, Total Bilirubin 0.2, Total Protein 6.1L, Albumin 2.4L, Magnesium Level 2.5H, Albumin/ Globulin Ratio 0.65L 05/03/17 11:53: Bedside Glucose (Misc Panel) 326H CBC/BMP Laboratory Tests 05/03/17 06:17 Red Blood Count 3.70 L, Mean Corpuscular Volume 89.8, Mean Corpuscular Hemoglobin 30.9, Mean Corpuscular Hemoglobin Concent 34.4, Red Cell Distribution Width 13.5, Calcium Level 8.6, Aspartate Amino Transf (AST/SGOT) 31 , Alanine Aminotransferase (ALT/SGPT) 41, Alkaline Phosphatase 157 H, Total Bilirubin 0.2, Total Protein 6.1 L, Albumin 2.4 L Microbiology Microbiology 04/27/17 Urine Culture - Final, Complete ANGIE SANCHEZ MD May 03, 2017 15:39
[2017-05-03 22:00] VITALS: BP 116/67
[2017-05-04] VITALS: BP 109/62
[2017-05-04 04:00] VITALS: BP 101/57
[2017-05-04 07:23] LABS: MEAN CORPUSCULAR HGB CONC 34.3 g/dl (32.0-36.5); MEAN CORPUSCULAR VOLUME 90.3 fl (80.0-96.0); RED CELL DISTRIBUTION WIDTH 13.4 % (11.5-14.5); WHITE BLOOD COUNT 4.8 K/mm3 (4.0-10.0)
[2017-05-04 07:38] LABS: ALBUMIN 2.6 GM/DL (3.2-5.2); ALBUMIN/GLOBULIN RATIO 0.67 (1.00-1.93); ALKALINE PHOSPHATASE 170 U/L (45-117); ALT/SGPT 51 U/L (12-78); ANION GAP 6 MEQ/L (8-16); AST/SGOT 30 U/L (15-37); BILIRUBIN,TOTAL 0.4 MG/DL (0.2-1.0); BLOOD UREA NITROGEN 10 MG/DL (7-18); CARBON DIOXIDE LEVEL 29 MEQ/L (21-32); CHLORIDE LEVEL 100 MEQ/L (98-107); CREATININE FOR GFR 0.48 MG/DL (0.55-1.02); GLOMERULAR FILTRATION RATE > 60.0 (>51); GLUCOSE, FASTING 247 MG/DL (70-105); MAGNESIUM LEVEL 2.6 MG/DL (1.8-2.4); SODIUM LEVEL 135 MEQ/L (136-145); TOTAL PROTEIN 6.5 GM/DL (6.4-8.2)
[2017-05-04 08:00] VITALS: BP 107/64
[2017-05-04] MEDS: ENOXAPARIN 30 MG/0.3 ML SYR (J1650) SC SCH (08:57)
[2017-05-04] MEDS: HumaLOG INSULIN (NovoLOG) PER UNIT SC SCH ×3 (08:58→18:00)
[2017-05-04] MEDS: LEVEMIR (INSULIN DETEMIR) 1 UNITS/0.01ML SC SCH (08:58)
[2017-05-04 16:00] VITALS: BP 126/67
--- NOTE | 2017-05-05 09:09 | DSES ---
DATE OF ADMISSION: 04/27/2017 DATE OF DISCHARGE: 05/04/2017 Please see discharge summary dictated 05/01/2017. The patient did remain in the hospital for the and and was discharged on the without any changes to the discharge orders or instructions or medications from the previously dictated discharge summary. The patient was awaiting a bed without any change in her status. A bed was made available at [facility], as previously outlined, and the patient was discharged with the previously written instructions and orders.
== END 2017-05-04 18:23 | disposition home or self-care (01) | DRG 420 ==
LOC: M ED 15:55 → M ED INP 17:57 → M ICU 19:48 → M MS5PR 04-30 13:25 → M PED 05-04 00:03
PROVIDERS: ADMIT Hospitalist; ATTEND Hospitalist
DX: E13.10 Other specified diabetes mellitus with ketoacidosis without coma (principal); G93.41 Metabolic encephalopathy; N17.9 Acute kidney failure, unspecified; C25.0 Malignant neoplasm of head of pancreas; R59.0 Localized enlarged lymph nodes